=== PATIENT | female | born 1985 | race Hispanic/Latino ===

== ENCOUNTER 2024-03-27 18:02 | Emergency (ER) | payer OTHER ==
[2024-03-27] MEDS ORDERED: NA CHLORIDE 0.9% 1,000 ML ONE (18:30)
[2024-03-27] MEDS ORDERED: ONDANSETRON 4 MG/2 ML VIAL ONE (18:30)
[2024-03-27] MEDS ORDERED: KETOROLAC 30 MG/ML INJ ONE (18:30)
[2024-03-27 18:47] LABS: Absolute Eosinophils 0.1 K/uL (0-0.5); Absolute Lymphocytes (CBC) 2.1 K/uL (0.7-4.9); Absolute Monocytes 0.7 K/uL (0.1-1.3); Basophils % 0.3 % (0-1.3); Eosinophils % 1.2 % (0-4.4); Hematocrit 35.2 % (36.0-45.0); Hemoglobin 11.3 g/dL (12.0-15.0); Lymphocytes % 19.1 % (15.3-44.8); MCHC 32.3 g/dL (32.0-36.0); MCV 80.6 fL (80-100); MPV 8.4 fL (7.6-11.3); Monocytes % 6.7 % (3.3-12.3); Neutrophils % 72.7 % (41.7-73.7); Platelets 378 thou/uL (152-406); RBC Red Blood Cell Count 4.36 M/uL (3.86-4.86); Red Cell Distribution Width 17.3 % (12.1-15.2)
[2024-03-27 18:51] LABS: Specific Gravity > 1.030 (1.005-1.030)
[2024-03-27 18:52] LABS: Calcium Oxalate Crystals- Ur Few /HPF (None Seen); Specific Gravity > 1.030 (1.005-1.030); Sqamous Epithelial 20-50 /HPF (None Seen); Urine Bacteria None Seen /HPF (<20); Urine Bilirubin NEGATIVE (Negative); Urine Blood 1+ (Negative); Urine Clarity Extremely Turbid (Clear); Urine Color Yellow (Yellow); Urine Culture Reflex Order NOT NEEDED; Urine Glucose NEGATIVE (Negative); Urine Ketones NEGATIVE (Negative); Urine Microscopic Reflex YN ORDER UMIC; Urine Mucus Slight /HPF (None Seen); Urine Nitrite NEGATIVE (Negative); Urine Protein TRACE (Negative); Urine RBC 21-50 /HPF (None Seen); Urine Urobilinogen Normal (Normal); Urine WBC <5 /HPF (<5)
[2024-03-27] MEDS ORDERED: FENTANYL CITR 100 MCG/2 ML ONE ×2 (18:52→21:21)
[2024-03-27 19:00] LABS: Albumin 3.8 g/dL (3.4-5.0); Albumin/Globulin Ratio 0.9 (1.1-1.8); Anion Gap 12.7 mEq/L (5.0-15.0); Bilirubin Total 0.3 mg/dL (0.2-1.0); Globulin 4.1 g/dL (2.3-3.5); Potassium 3.7 mEq/L (3.5-5.1); Protein, Total 7.9 g/dL (6.4-8.2)
--- NOTE | 2024-03-27 19:46 | RAD REPORT ---
EXAM DESCRIPTION: CT - Stone Protocol - 03/27/2024 7:23 pm CLINICAL HISTORY: Abdominal pain. Right flank pain COMPARISON: 2013 TECHNIQUE: Computed axial tomography of the abdomen pelvis was obtained without oral or IV contrast. Lack of IV and oral contrast limits evaluation of solid organs, appendix, bowel, and vessels. Mathews l reformatted images were obtained and reviewed. All CT scans are performed using dose optimization technique as appropriate and may include automated exposure control or mA/KV adjustment according to patient size. FINDINGS: A 6 millimeter calculus right UVJ. Mild to moderate right hydronephrosis. No renal calculus. The liver, spleen, pancreas and adrenals appear grossly normal Postsurgical changes involve the stomach There is no evidence of diverticulitis. The appendix appears normal IMPRESSION: 6 millimeter calculus right UVJ results in mild to moderate right hydronephrosis
--- NOTE | 2024-03-27 21:07 | EDPHYS ---
Physician Documentation [facility] Name: Slime Olmstead Age: 38 yrs Sex: Female : 1985 Arrival Date: 03/27/2024 Time: 18:02 Bed 17 Private MD: ED Physician Manoj Khan HPI: 03/27 21:33 This 38 yrs old Female presents to ER via Ambulatory with complaints of kb Possible Kidney Stone. 21:33 Pt is a 38 year old female who presents for right flank pain that started on 03/24. kb States she was seen at an ER out of town, diagnosed with a kidney stone and sent home with pain medication. States she passed a kidney stone yesterday, but today still has pain. Denies fever, urinary symptoms, diarrhea. Reports associated nausea and vomiting. SLIP LASTER: 21:33 unknown al5 Historical: - Allergies: 18:12 No Known Allergies; dd2 - Home Meds: 18:12 Unable to obtain [Active]; dd2 - PMHx: 18:12 None; dd2 - PSHx: 18:12 None; dd2 - Immunization history:: Adult Immunizations unknown. - Infectious Disease History:: Denies. - Social history:: Smoking status: Patient denies any tobacco usage or history of. ROS: 21:30 Constitutional: As per HPI kb Exam: 21:30 Constitutional: This is a well developed, well nourished patient who is awake, alert, kb and in no acute distress. Head/Face: Normocephalic, atraumatic. ENT: Moist Mucous membranes Chest/axilla: Normal chest wall appearance and motion. Cardiovascular: Regular rate Respiratory: Respirations even and unlabored. No increased work of breathing. Talking in full sentences Abdomen/GI: Soft, non-tender. No distention Skin: Warm, dry with normal turgor. Normal color. MS/ Extremity: Pulses equal, no cyanosis. Neurovascular intact. Full, normal range of motion. Neuro: Awake and alert, GCS 15, oriented to person, place, time, and situation. Moves all extremities. Normal gait. 21:30 Back: CVA tenderness, that is moderate, is noted on the right, Vital Signs: 18:08 BP 162 / 94; Pulse 73; Resp 19; Temp 97.5; Pulse Ox 99% ; Weight 90.72 kg; Height 5 ft. dd2 5 in. ; 18:20 BP 159 / 91; Pulse 68; Resp 18; Pulse Ox 100% on R/A; al5 19:21 BP 147 / 88; Pulse 74; Resp 18; Pulse Ox 100% on R/A; al5 20:55 BP 142 / 75; Pulse 73; Resp 18; Pulse Ox 100% on R/A; al5 21:11 BP 139 / 73; Pulse 80; Resp 18; Pulse Ox 100% on R/A; al5 18:08 Body Mass Index 33.28 (90.72 kg, 165.1 cm) dd2 MDM: 18:09 Patient medically screened. kb 21:31 Differential diagnosis: kidney stone, UTI, pyelonephritis. Data reviewed: vital signs, kb nurses notes. Consideration of Admission/Observation Escalation of care including admission/observation considered. admission considered but pt is controlled, pt has norco that was previously prescribed and has a follow up appt with a urologist on Monday. External Records Reviewed: Outside ED record: Pt had CT on 03/24 at another ER. Labs and urinalysis unremarkable. CT scan revealed 3mm stone in distal ureter with 5mm calculus in right kidney. Counseling: I had a detailed discussion with the patient and/or guardian regarding the historical points, exam findings, and any diagnostic results supporting the discharge/admit diagnosis, lab results, radiology results, the need for outpatient follow up, a urologist, to return to the emergency department if symptoms worsen or persist or if there are any questions or concerns that arise at home. 03/27 18:14 Order name: CBC with Diff; Complete Time: 19:08 kb 03/27 18:14 Order name: CMP; Complete Time: 19:08 kb 03/27 18:14 Order name: Lipase; Complete Time: 19:08 kb 03/27 18:14 Order name: Test, Urine; Complete Time: 18:51 kb 03/27 18:14 Order name: Urinalysis w/ reflexes; Complete Time: 19:08 kb 03/27 18:14 Order name: CT Stone Protocol; Complete Time: 19:53 kb 03/27 18:14 Order name: IV Saline Lock; Complete Time: 18:34 kb 03/27 18:14 Order name: Labs collected and sent; Complete Time: 18:34 kb Administered Medications: 18:34 Drug: NS 0.9% IV 1000 ml IV at 1 bolus Per protocol; 1000 mL bolus Route: IV; Rate: 1 ph bolus; Site: right antecubital; 21:35 Follow up: Response: No adverse reaction; IV Status: Completed infusion; IV Intake: al5 1000ml 18:34 Drug: TORadol - Ketorolac IVP 15 mg IVP once Route: IVP; Site: right antecubital; ph 18:57 Follow up: Response: No adverse reaction; Pain is unchanged, physician notified; RASS: ph Restless (+1) 18:39 Drug: Ondansetron IVP 4 mg IVP once; over 2 minutes Route: IVP; Site: right antecubital;ph 18:56 Follow up: Response: No adverse reaction; Nausea is decreased ph 18:56 Drug: fentaNYL (PF) IVP 50 mcg IVP once Route: IVP; Site: right antecubital; ph 21:25 Follow up: Response: No adverse reaction; Pain is decreased al5 21:22 Not Given (Patient Refused): norco10 mg-325 mg 1 tabs PO once kb 21:24 Not Given (Physician Discretion): magnesium sulfate1 grams IVPB once over 1 hrs al5 21:29 Drug: fentaNYL (PF) IVP 25 mcg IVP once Route: IVP; Site: right antecubital; al5 21:35 Follow up: Response: No adverse reaction; Pain is decreased al5 Disposition Summary: 03/27/24 21:06 Discharge Ordered Notes: Location: Home kb Condition: Stable kb Diagnosis - Calculus of ureter kb Followup: kb - With: Emergency Department - When: As needed - Reason: Worsening of condition Followup: kb - With: Private Physician - When: 2 - 3 days - Reason: Recheck today's complaints, Continuance of care, Re-evaluation by your physician Discharge Instructions: - Discharge Summary Sheet kb - Kidney Stones, [id number] kb - Dietary Guidelines to Help Prevent Kidney Stones kb Forms: - Medication Reconciliation Form kb - Antibiotic Education kb - Prescription Opioid Use kb - Patient Portal Instructions kb - Leadership Thank You Letter kb - Work release form al5 Signatures: Dispatcher [employer] Savanah Felix FNP-C FNP-Zeina Perea RN RN Reina John RN RN al5 GULSHAN AVILA RN RN dd2 Corrections: (The following items were deleted from the chart) 18:14 18:14 CBC+H.LAB.BRZ ordered. EDMS EDMS 18:14 18:14 COMPREHENSIVE METABOLIC PANEL+C.LAB.BRZ ordered. EDMS EDMS 18:14 18:14 LIPASE+C.LAB.BRZ ordered. EDMS EDMS 18:15 18:14 Test, Urine+UC.LAB.BRZ ordered. EDMS EDMS 18:15 18:14 Urinalysis+U.LAB.BRZ ordered. EDMS EDMS 18:15 18:15 Stone Protocol+CT.RAD.BRZ ordered. EDMS EDMS
--- NOTE | 2024-03-27 21:07 | ER ---
Nurse's Notes [facility] Name: Slime Olmstead Age: 38 yrs Sex: Female : 1985 Arrival Date: 03/27/2024 Time: 18:02 Bed 17 Private MD: Diagnosis: Calculus of ureter Presentation: 03/27 18:08 Chief complaint: Chief complaint: Patient states: Pt states rt lower back pain, and was dd2 dx with a kidney stone Mar 24. 18:08 Coronavirus screen: At this time, the client does not indicate any symptoms associated dd2 with coronavirus-19. Ebola Screen: No symptoms or risks identified at this time. Initial Sepsis Screen: Does the patient meet any 2 criteria? No. Patient's initial sepsis screen is negative. Does the patient have a suspected source of infection? No. Patient's initial sepsis screen is negative. Risk Assessment: Do you want to hurt yourself or someone else? Patient reports no desire to harm self or others. Onset of symptoms is unknown. 18:08 Method Of Arrival: Ambulatory dd2 18:08 Acuity: JOSE MANUEL 3 dd2 Triage Assessment: 18:12 General: Appears distressed, uncomfortable, Behavior is cooperative, appropriate for dd2 age, restless. Pain: Complains of pain in back and abdomen. GI: Reports nausea, vomiting. CHAIN CARRIER: 21:33 unknown al5 Historical: - Allergies: 18:12 No Known Allergies; dd2 - Home Meds: 18:12 Unable to obtain [Active]; dd2 - PMHx: 18:12 None; dd2 - PSHx: 18:12 None; dd2 - Immunization history:: Adult Immunizations unknown. - Infectious Disease History:: Denies. - Social history:: Smoking status: Patient denies any tobacco usage or history of. Screenin:36 [facility] ED Fall Risk Assessment (Adult) History of falling in the last 3 months, ph including since admission No falls in past 3 months (0 pts) Confusion or Disorientation No (0 pts) Intoxicated or Sedated No (0 pts) Impaired Gait No (0 pts) Mobility Assist Device Used No (0 pt) Altered Elimination No (0 pt) Score/Fall Risk Level 0 - 2 = Low Risk Oriented to surroundings, Maintained a safe environment, Hourly rounding (assess needs \T\ fall precautionary measures) done. Abuse screen: Denies threats or abuse. Denies injuries from another. Nutritional screening: No deficits noted. Tuberculosis screening: No symptoms or risk factors identified. Assessment: 18:35 General: Appears in no apparent distress. uncomfortable, Behavior is calm, cooperative. ph Pain: Complains of pain in posterior aspect of right lateral abdomen and anterior aspect of right lateral abdomen. Neuro: Ward Agitation-Sedation Scale (RASS): +1 Restless Level of Consciousness is awake, alert, obeys commands, Oriented to person, place, time, situation. Cardiovascular: Capillary refill < 3 seconds in bilateral fingers Patient's skin is warm and dry. Respiratory: Airway is patent Respiratory effort is even, unlabored. GI: Bowel sounds present X 4 quads. Abd is soft and non tender X 4 quads. Reports lower abdominal pain, nausea. : Reports pain in right flank(s), lower quadrant(s) in lower back. Derm: Skin is pink, warm \T\ dry. 20:50 Reassessment: Patient appears in no apparent distress at this time. Patient and/or al5 family updated on plan of care and expected duration. Pain level reassessed. Patient is alert, oriented x 3, equal unlabored respirations, skin warm/dry/pink. Patient is alert/active/playful, equal unlabored respirations, skin warm/dry/pink. pain better than when initially came in.. Vital Signs: 18:08 BP 162 / 94; Pulse 73; Resp 19; Temp 97.5; Pulse Ox 99% ; Weight 90.72 kg; Height 5 ft. dd2 5 in. ; 18:20 BP 159 / 91; Pulse 68; Resp 18; Pulse Ox 100% on R/A; al5 19:21 BP 147 / 88; Pulse 74; Resp 18; Pulse Ox 100% on R/A; al5 20:55 BP 142 / 75; Pulse 73; Resp 18; Pulse Ox 100% on R/A; al5 21:11 BP 139 / 73; Pulse 80; Resp 18; Pulse Ox 100% on R/A; al5 18:08 Body Mass Index 33.28 (90.72 kg, 165.1 cm) dd2 ED Course: 18:05 Patient arrived in ED. mr 18:08 Savanah Hobson FNP-C is PHCP. kb 18:09 Manoj Khan MD is Attending Physician. kb 18:12 Triage completed. dd2 18:12 Arm band placed on right wrist. Patient placed in an exam room, on a stretcher, on dd2 pulse oximetry, Patient notified of wait time. 18:23 Zeina Garcia, RN is Primary Nurse. ph 18:34 CBC with Diff Sent. ph 18:34 CMP Sent. ph 18:34 Lipase Sent. ph 18:35 Test, Urine Sent. ph 18:35 Urinalysis w/ reflexes Sent. ph 18:35 Initial lab(s) drawn, by ED staff, sent to lab. Urine collected: clean catch specimen. ph Inserted saline lock: 20 gauge in right antecubital area, using aseptic technique. Blood collected. Flushed with 10 mL NS. 18:36 Patient has correct armband on for positive identification. Bed in low position. Call ph light in reach. Side rails up X 1. Pulse ox on. NIBP on. Door closed. Noise minimized. Warm blanket given. 19:25 CT Stone Protocol In Process Unspecified. EDMS 21:33 Provided Education on: discharge follow up. al5 21:34 IV discontinued, intact, bleeding controlled, No redness/swelling at site. Pressure al5 dressing applied. 21:34 No provider procedures requiring assistance completed. al5 Administered Medications: 18:34 Drug: NS 0.9% IV 1000 ml IV at 1 bolus Per protocol; 1000 mL bolus Route: IV; Rate: 1 ph bolus; Site: right antecubital; 21:35 Follow up: Response: No adverse reaction; IV Status: Completed infusion; IV Intake: al5 1000ml 18:34 Drug: TORadol - Ketorolac IVP 15 mg IVP once Route: IVP; Site: right antecubital; ph 18:57 Follow up: Response: No adverse reaction; Pain is unchanged, physician notified; RASS: ph Restless (+1) 18:39 Drug: Ondansetron IVP 4 mg IVP once; over 2 minutes Route: IVP; Site: right antecubital;ph 18:56 Follow up: Response: No adverse reaction; Nausea is decreased ph 18:56 Drug: fentaNYL (PF) IVP 50 mcg IVP once Route: IVP; Site: right antecubital; ph 21:25 Follow up: Response: No adverse reaction; Pain is decreased al5 21:22 Not Given (Patient Refused): norco10 mg-325 mg 1 tabs PO once kb 21:24 Not Given (Physician Discretion): magnesium sulfate1 grams IVPB once over 1 hrs al5 21:29 Drug: fentaNYL (PF) IVP 25 mcg IVP once Route: IVP; Site: right antecubital; al5 21:35 Follow up: Response: No adverse reaction; Pain is decreased al5 Medication: 18:36 VIS not applicable for this client. ph Intake: 21:35 IV: 1000ml; Total: 1000ml. al5 Outcome: 21:06 Discharge ordered by . kb 21:34 Discharged to home ambulatory, with family, al5 21:34 Condition: good 21:34 Discharge instructions given to patient, Instructed on discharge instructions, follow up and referral plans. medication usage, Demonstrated understanding of instructions, follow-up care, medications, 21:35 Patient left the ED. al5 Signatures: Dispatcher [employer] EDMS Savanah Hobson, VETERINARY POULTRY INSPECTOR-C VETERINARY POULTRY INSPECTOR-CkStefanie Green, Reg Reg mr Zeina Garcia, RN RN ph Reina Blanco RN RN al5 GULSHAN AVILA RN RN dd2 Corrections: (The following items were deleted from the chart) 18:12 18:08 Chief complaint: dd2 dd2 18:56 18:56 fentaNYL (PF) IVP 50 mcg IVP in left antecubital ph ph 21:33 21:14 Reassessment: pending discharge after magnesium infusion al5 al5
[2024-03-27] MEDS ORDERED: HYDROCODONE/APAP 10/325 TAB ONE (21:16)
[2024-03-27 21:53] VITALS: TEMP 97.5
[2024-03-27 21:55] VITALS: O2SAT 100
[2024-03-27 22:04] VITALS: BP 139/73
== END 2024-03-27 21:35 | disposition home or self-care (01) ==
LOC: ER 18:02
DX: N20.1 Calculus of ureter (principal)
CPT/HCPCS: 85025; 81001; 36415; 81025; 83690; 80053; 76377; 74176; J3010 ×2; J2405; J7030